=== PATIENT | male | born 1965 | race Hispanic/Latino ===

== ENCOUNTER 2016-07-29 08:51 | Emergency (ER) | payer OTHER ==
[2016-07-29 08:55] VITALS: BMI 22.6
[2016-07-29] MEDS ORDERED: Morphine 4 mg/ml ISec IVP STA (09:40)
[2016-07-29 09:46] LABS: ADD MANUAL DIFF? NO
--- NOTE | 2016-07-29 09:52 | ED PDOC ---
Arrival/HPI - General Historian: Patient - General Chief Complaint: Trauma Time Seen by Provider: 07/29/16 09:02 - History of Present Illness Narrative History of Present Illness (Text): 07/29/16 09:48 50yo male with no PMhx present with complaint of right sided hip and wrist pain s/p trauma this morning. States she fell off a dock while working and landed on his right side. States he was able to stand after the trauma and was then picked up by his colleagues. He notes sharp pain with movement. Denies LOC, nausea, focal weakness, visual changes, urinary/fecal incontinence, dizziness, any other complaint. (Eva Romano A) Past Medical History - Provider Review Nursing Documentation Reviewed: Yes - Psychiatric Hx Substance Use: Yes Family/Social History - Physician Review Nursing Documentation Reviewed: Yes Family/Social History: Unknown Family HX Smoking Status: Heavy Smoker > 10 Cigarettes Daily Hx Alcohol Use: Yes Frequency of alcohol use: Socially Hx Substance Use: Yes Allergies/Home Meds Allergies/Adverse Reactions: Allergies No Known Allergies Allergy (Verified 07/29/16 08:54) Home Medications: Home Meds Medication Instructions Recorded Confirmed No Known Home Med 07/29/16 07/29/16 Review of Systems - Physician Review All systems were reviewed & negative as marked: Yes - Review of Systems Constitutional: Normal Eyes: Normal ENT: Normal Respiratory: Normal Cardiovascular: Normal Gastrointestinal: Normal Genitourinary Male: Normal Musculoskeletal: Arthralgias (right sided hip and wrist pain) Skin: Normal Neurological: Normal Endocrine: Normal Hemo/Lymphatic: Normal Psychiatric: Normal Physical Exam Vital Signs Reviewed: Yes Temperature: Afebrile Blood Pressure: Normal Pulse: Regular Respiratory Rate: Normal Appearance: Positive for: Well-Appearing, Non-Toxic, Comfortable Pain Distress: None Mental Status: Positive for: Alert and Oriented X 3 - Systems Exam Head: Present: Atraumatic, Normocephalic Pupils: Present: PERRL Extroacular Muscles: Present: EOMI Conjunctiva: Present: Normal Mouth: Present: Moist Mucous Membranes Neck: Present: Normal Range of Motion Respiratory/Chest: Present: Clear to Auscultation, Good Air Exchange. No: Respiratory Distress, Accessory Muscle Use Cardiovascular: Present: Regular Rate and Rhythm, Normal S1, S2. No: Murmurs Abdomen: Present: Normal Bowel Sounds. No: Tenderness, Distention, Peritoneal Signs Back: Present: Normal Inspection Upper Extremity: Present: Normal ROM (pain), NORMAL PULSES, Tenderness (Right diffuse wrist ), Swelling, Neurovascularly Intact, Capillary Refill < 2s, Deformity. No: Cyanosis, Edema, Erythema, Temperature Abnormalties Lower Extremity: Present: NORMAL PULSES, Tenderness (Anterior right hip), Deformity (Externally rotated right leg), Neurovascularly Intact. No: Edema, Normal ROM (Limited on all planes secondary to pain), Swelling, Temperature Abnormalties Neurological: Present: GCS=15, CN II-XII Intact, Speech Normal Skin: Present: Warm, Dry, Normal Color. No: Rashes Psychiatric: Present: Alert, Oriented x 3, Normal Insight, Normal Concentration Vital Signs Temp Pulse Resp BP Pulse Ox 07/29/16 13:47 98 F 62 18 125/66 96 07/29/16 12:24 59 L 16 122/52 L 95 07/29/16 11:28 64 18 106/52 L 95 07/29/16 10:52 76 18 106/52 L 96 07/29/16 08:54 97.7 F 65 18 144/71 96 Medical Decision Making ED Course and Treatment: I was available for consultation during PA evaluation. The chart was reviewed by me, and I agree with disposition. The documented history was done by the physician rn bsn. The documented physical exam was done by the physician rn bsn. The documented procedures were done by the physician rn bsn. (Renato Cabrera) 07/29/16 13:43 Right wrist xray - Distal radial and ulnar fracture noted Volar splint was placed. Right hip xray - Acute fracture proximal right femur, subcapital location Case was JO Queen, Orthopedist control clerk repairs. he requested for the imaging which was sent to him. He then requested that pt be transferred to [facility]. States he spoke with the INFORMATION SYSTEMS OPERATOR and they is no instrument for the surgery in [place]. case was JO Reid, attending at [facility] ED. He accepted pt fro transfer Result and plan was DW the pt and he agreed. Consent was obtained. (Eva Romano) - Lab Interpretations Lab Results: 07/29/16 09:00 07/29/16 09:00 Lab Results 07/29/16 09:00: WBC 16.0 H, RBC 4.30, Hgb 14.3, Hct 42.9, MCV 99.8, MCH 33.3, MCHC 33.3, RDW 13.2, Plt Count 270, MPV 9.6, Gran % 85.4 H, Lymph % (Auto) 8.9 L , Victoria % (Auto) 4.4, Eos % (Auto) 0.9 L, Baso % (Auto) 0.4, Gran # 13.66 H, Lymph # 1.4, Victoria # 0.7 H, Eos # 0.1, Baso # 0.06, PT 10.6, INR 0.98, APTT 28.3 , Sodium 137, Potassium 4.2, Chloride 101, Carbon Dioxide 28, Anion Gap 12, BUN 19, Creatinine 1.1, Est GFR ( Amer) > 60, Est GFR (Non-Af Amer) > 60, Random Glucose 127 H, Calcium 9.2, Total Bilirubin 0.7, AST 40, ALT 38, Alkaline Phosphatase 62, Total Protein 7.5, Albumin 4.1, Globulin 3.3, Albumin/ Globulin Ratio 1.2 - RAD Interpretation Radiology Orders: 07/29/16 09:38 HIP MIN 2V W/ PELVIS RT [RAD] Stat 07/29/16 09:39 WRIST, RIGHT 3 VIEWS [RAD] Stat 07/29/16 10:43 CHEST PORTABLE [RAD] Stat - Medication Orders Current Medication Orders: Discontinued Medications Hydromorphone HCl (Dilaudid) 1 mg IVP STAT STA Stop: 07/29/16 13:44 Last Admin: 07/29/16 13:52 Dose: 1 MG IVP Administration Document 07/29/16 13:52 [facility] (Rec: 07/29/16 13:52 [facility]-[id number]) Charges for Administration # of IVP Administrations 1 Morphine Sulfate (Morphine) 4 mg IVP STAT STA Stop: 07/29/16 09:41 Last Admin: 07/29/16 09:47 Dose: 4 MG MAR Pain Assessment Document 07/29/16 09:47 [facility]OL (Rec: 07/29/16 09:48 JOL [id number]) Pain Reassessment Is this a pain reassessment? No Sleep Is patient sleeping during reassessment? No Presence of Pain Presence of Pain Yes Pain Scale Used Pain Scale Used Numeric Location Left, Right or Bilateral Right Pain Location Body Site Hip Description Intensity of Pain at present 8 IVP Administration Document 07/29/16 09:47 [facility]IMA (Rec: 07/29/16 09:48 [facility]IMA [id number]) Charges for Administration # of IVP Administrations 1 Disposition/Present on Arrival - Present on Arrival Any Indicators Present on Arrival: No History of DVT/PE: No History of Uncontrolled Diabetes: No Urinary Catheter: No History of Decub. Ulcer: No History Surgical Site Infection Following: None - Disposition Have Diagnosis and Disposition been Completed?: Yes Disposition Time: 13:00 - Disposition Diagnosis: Hip fracture, Wrist fracture Disposition: Transfer [facility] Patient Problems: Current Active Problems Problem Status Diagnosed Closed right hip fracture Acute Right wrist fracture Acute Wrist fracture, closed Acute Condition: FAIR Referrals: PCP,NO [Primary Care Provider] - Follow up with primary
[2016-07-29 09:55] LABS: BASO # 0.06 K/mm3 (0.0-2.0); BASO % 0.4 % (0.0-3.0); EOS # 0.1 (0.0-0.7); EOS % 0.9 % (1.5-5.0); GRAN # 13.66 (1.4-6.5); GRAN % 85.4 % (50.0-68.0); HEMATOCRIT 42.9 % (42.0-52.0); LYMPH # 1.4 (1.2-3.4); LYMPH % 8.9 % (22.0-35.0); MEAN CELL VOLUME 99.8 fL (80.0-105.0); MEAN CORPUSCULAR HEMOGLOBIN 33.3 pg (25.0-35.0); MEAN CORPUSCULAR HGB CONC 33.3 g/dl (31.0-37.0); MEAN PLATELET VOLUME 9.6 fl (7.0-11.0); MONO # 0.7 (0.1-0.6); MONO % 4.4 % (1.0-6.0); PLATELET COUNT 270 10^3/uL (120.0-450.0); RED CELL DISTRIBUTION WIDTH 13.2 % (11.5-14.5)
[2016-07-29 10:00] LABS: INR 0.98 (0.93-1.08); PARTIAL THROMBOPLASTIN TIME 28.3 Seconds (23.7-30.8)
[2016-07-29 10:01] LABS: ALB/GLOB RATIO 1.2 (1.1-1.8); ALKALINE PHOSPHATASE 62 U/L (38-133); ALT/SGPT 38 U/L (7-56); AST/SGOT 40 U/L (15-59); BILIRUBIN,TOTAL 0.7 mg/dL (0.2-1.3); BLOOD UREA NITROGEN 19 mg/dL (7-21); CALCIUM 9.2 mg/dL (8.4-10.5); CARBON DIOXIDE 28 mmol/L (21-33); CHLORIDE 101 mmol/L (98-107); GFR AFRICAN-AMERICAN > 60; GLUCOSE,RANDOM 127 mg/dL (70-110); POTASSIUM 4.2 mmol/L (3.6-5.0); SODIUM 137 mmol/L (132-148); TOTAL PROTEIN 7.5 g/dL (5.8-8.3)
--- NOTE | 2016-07-29 10:55 | RAD ---
PROCEDURE: Right Wrist Radiographs. HISTORY: wrist pain s/p trauma COMPARISON: None. FINDINGS: BONES: Impacted, comminuted, intra-articular fracture distal right radius. Avulsed ulnar styloid fracture. JOINTS: Normal. No dislocation. SOFT TISSUES: Soft tissue swelling attests to the acuity of the fracture. OTHER FINDINGS: None. IMPRESSION: Acute fractures distal radius and ulna.
--- NOTE | 2016-07-29 10:57 | RAD ---
PROCEDURE: Pelvis right hip HISTORY: hip pain s/p trauma COMPARISON: None TECHNIQUE: Standard protocol for this study/examination. FINDINGS: Subcapital fracture of proximal right femur. No evidence of distraction. No pelvic ring abnormalities. IMPRESSION: Acute fracture proximal right femur, subcapital location.
--- NOTE | 2016-07-29 10:58 | RAD ---
HISTORY: Admission. Technique: Single view portable semi erect @ 10:48. COMPARISON: No prior. FINDINGS: LUNGS: No active pulmonary disease. PLEURA: No significant pleural effusion identified, no pneumothorax apparent. CARDIOVASCULAR: No radiographic findings to suggest acute or significant cardiovascular disease. OSSEOUS STRUCTURES: No significant abnormalities. VISUALIZED UPPER ABDOMEN: Normal. OTHER FINDINGS: None. IMPRESSION: No active disease.
[2016-07-29] MEDS ORDERED: HYDROmorphone 1 mg/ml ISec IVP STA (13:43)
[2016-07-29 13:48] VITALS: BP 125/66; PULSE 62; RESP 18; TEMP 98; O2SAT 96
== END 2016-07-29 13:57 | disposition short-term general hospital (02) ==
LOC: ED 08:51
DX: S72.011A Unspecified intracapsular fracture of right femur, initial encounter for closed fracture (principal); S52.571A Other intraarticular fracture of lower end of right radius, initial encounter for closed fracture; S52.611A Displaced fracture of right ulna styloid process, initial encounter for closed fracture; W17.4XXA Fall from dock, initial encounter; Y92.89 Other specified places as the place of occurrence of the external cause; Y99.0 Civilian activity done for income or pay; F17.210 Nicotine dependence, cigarettes, uncomplicated
CPT/HCPCS: 71010; 73110; 73502; 80053; 85025; 85610; 85730; 96374; 96375; 99285; J1170; J2270